=== PATIENT | female | born 1965 | race American Indian/Alaskan Native ===

== ENCOUNTER 2017-07-18 19:53 | Emergency (ER) | payer OTHER ==
[2017-07-18] MEDS ORDERED: MOTRIN PO ONE (20:29)
[2017-07-18 21:08] LABS: HCG Qualitative,Urine Negative (Negative)
[2017-07-18 21:13] LABS: Bacteria,Urine 1+ /HPF (Negative); Bilirubin,Urine NEG (Negative); Blood,Urine SM (Negative); Color,Urine Yellow (Yellow); Protein,Urine <15 mg/dL mg/dL (Negative); Urobilinogen,Urine < 2.0 mg/dL (<2.0)
--- NOTE | 2017-07-18 22:26 | XRay Report ---
FINAL REPORT EXAM: XR SPINE CERVICAL 2-3V HISTORY: pain TECHNIQUE: Cervical spine five views PRIORS: None. FINDINGS: Vertebral bodies demonstrate normal height and alignment. The disk spaces are within normal limits. The facet joints demonstrate normal alignment. The spinous processes are intact. Craniocervical junction is unremarkable. C1 and C2 are intact. IMPRESSION: Negative cervical spine series.
--- NOTE | 2017-07-18 22:42 | XRay Report ---
FINAL REPORT EXAM: XR KNEE 1-2V LT HISTORY: pain TECHNIQUE: Left knee three views PRIORS: None. FINDINGS: No fracture is identified. No dislocation seen. No evidence of joint effusion. Patella demonstrates normal positioning. No acute bony abnormality identified. IMPRESSION: Negative knee series
--- NOTE | 2017-07-18 22:45 | XRay Report ---
FINAL REPORT EXAM: XR SPINE LUMBOSACRAL 2-3V HISTORY: pain TECHNIQUE: Lumbar spine five views PRIORS: None. FINDINGS: Vertebral bodies demonstrate normal height and alignment. Few small marginal vertebral body osteophytes are noted. The disc spaces are within normal limits. There is no evidence of spondylolisthesis. Transverse and spinous processes are intact SI joints are unremarkable. IMPRESSION: Minimal spondylosis with some small marginal vertebral osteophytes noted otherwise negative study.
[2017-07-19 00:56] VITALS: BP 125/81
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
== END 2017-07-19 01:26 | disposition home or self-care (01) ==
LOC: ED 19:53
DX: S80.02XA Contusion of left knee, initial encounter (principal); M62.830 Muscle spasm of back; M54.2 Cervicalgia; M25.572 Pain in left ankle and joints of left foot; V89.2XXA Person injured in unspecified motor-vehicle accident, traffic, initial encounter; Y93.89 Activity, other specified; Y92.89 Other specified places as the place of occurrence of the external cause; Y99.8 Other external cause status
CPT/HCPCS: 72040; 72100; 81001; 81025

== ENCOUNTER 2019-02-06 09:09 | Emergency (ER) | payer BC, OTHER ==
[2019-02-06] MEDS ORDERED: oxyCODONE /ACETAMINOPHEN 5-325MG TAB PO STA (10:23)
[2019-02-06 11:10] LABS: Alanine Aminotransferase 12 units/L (7-56); Albumin 4.3 g/dL (3.9-5); BUN/Creatinine Ratio 16; Blood Urea Nitrogen 8 mg/dL (7-17); Calcium 8.7 mg/dL (8.4-10.2); Hemolysis Index 5
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
[2019-02-06 12:21] VITALS: BP 106/79
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
== END 2019-02-06 13:43 | disposition home or self-care (01) ==
LOC: ED 09:09
DX: S80.212A Abrasion, left knee, initial encounter (principal); S10.91XA Abrasion of unspecified part of neck, initial encounter; Z79.1 Long term (current) use of non-steroidal anti-inflammatories (NSAID); Z79.899 Other long term (current) drug therapy; V89.2XXA Person injured in unspecified motor-vehicle accident, traffic, initial encounter; Y93.89 Activity, other specified; Y92.488 Other paved roadways as the place of occurrence of the external cause; Y99.8 Other external cause status
CPT/HCPCS: 36415; 71260; 72125; 74177; 80053; 99284; Q9967

== ENCOUNTER 2019-07-23 20:05 | Emergency (ER) | payer BC | END 2019-07-23 20:30 | disposition left against medical advice (07) | LOC: ED 20:05 | DX: M54.2 Cervicalgia (principal); M54.9 Dorsalgia, unspecified; Z53.21 Procedure and treatment not carried out due to patient leaving prior to being seen by health care provider ==

== ENCOUNTER 2019-07-23 23:51 | Emergency (ER) | payer BC ==
[2019-07-24] MEDS ORDERED: dexAMETHasone 20 MG/5 ML VIAL IV ONE (02:07)
[2019-07-24] MEDS ORDERED: KETOROLAC 30 MG/1 ML INJ IV ONE (02:07)
[2019-07-24 02:34] LABS: Hematocrit 38.7 % (30.3-42.9); Hemoglobin 13.2 gm/dl (10.1-14.3); Mean Corpuscular HGB Conc 34 % (30-34); Mean Corpuscular Volume 87 fl (79-97); Platelet Count 191 K/mm3 (140-440); Red Blood Count 4.42 M/mm3 (3.65-5.03); Red Cell Distribution Width 13.6 % (13.2-15.2)
[2019-07-24 02:39] LABS: Bilirubin,Urine NEG (Negative); Color,Urine Yellow (Yellow)
[2019-07-24 02:40] LABS: Bacteria,Urine 1+ /HPF (Negative); Blood,Urine NEG (Negative); Mucus,Urine FEW /HPF; Protein,Urine <15 mg/dL mg/dL (Negative); Urobilinogen,Urine < 2.0 mg/dL (<2.0); WBC,Urine < 1.0 /HPF (0.0-6.0)
[2019-07-24 02:50] LABS: Alanine Aminotransferase 18 units/L (7-56); Albumin 4.7 g/dL (3.9-5); BUN/Creatinine Ratio 14; Blood Urea Nitrogen 10 mg/dL (7-17); Calcium 9.1 mg/dL (8.4-10.2); Hemolysis Index 6
[2019-07-24 03:34] LABS: Basophils % (Manual) 0 % (0.0-1.8); Total Cells Counted 100
[2019-07-24 03:35] LABS: Platelet Estimate Consistent w Auto; RBC Morphology Normal
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
--- NOTE | 2019-07-24 05:24 | Emergency Department Report ---
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 Patient denies dizziness, chest pain, shortness of breath, fever, chills, cough, numbness and tingling or weakness of upper and lower extremities bilaterally, change in vision, syncope, palpitations, fall, traumatic injury or heavy lifting. MD Complaint: Headache, right lateral neck pain and upper back pain -: Sudden, days(s) (3) Location: head, neck Radiation: non-radiation Severity scale (0 -10): 2 Quality: aching, sharp Consistency: constant Improves with: none Worsens with: none Associated Symptoms: denies other symptoms, headaches. denies: confusion, chest pain, cough, diaphoresis, fever/chills, loss of appetite, malaise, nausea/vomiting, rash, seizure, shortness of breath, syncope, weakness Treatments Prior to Arrival: none - Related Data Previous Rx's Medication Instructions Recorded Last Taken Type Baclofen [Lioresal] 10 mg PO TID #30 tab 07/19/17 Unknown Rx Ibuprofen 800 mg PO Q8H PRN #30 tablet 07/19/17 Unknown Rx HYDROcodone/APAP 7.5-325 [[place] 1 each PO Q8HR PRN #14 tablet 02/06/19 Unknown Rx 7.5/325] Meloxicam [Mobic] 15 mg PO DAILY #10 tablet 02/06/19 Unknown Rx Cyclobenzaprine [Flexeril] 10 mg PO Q8H PRN #21 tablet 07/24/19 Unknown Rx Ibuprofen [Motrin] 800 mg PO Q8HR PRN #30 tablet 07/24/19 Unknown Rx Allergies Allergy/AdvReac Type Severity Reaction Status Date / Time No Known Allergies Allergy Unverified 07/18/17 20:26 ED Review of Systems ROS: Stated complaint: NECK, BACK AND HAND PAIN Other details as noted in HPI Constitutional: denies: chills, fever Eyes: denies: eye pain, eye discharge, vision change ENT: denies: ear pain, throat pain Respiratory: denies: cough, shortness of breath, wheezing Cardiovascular: denies: chest pain, palpitations Endocrine: no symptoms reported Gastrointestinal: denies: abdominal pain, nausea, diarrhea Genitourinary: denies: urgency, dysuria, discharge Musculoskeletal: back pain (upper back), arthralgia (neck pain), myalgia. denies: joint swelling Skin: denies: rash, lesions Neurological: headache. denies: weakness, paresthesias Psychiatric: denies: anxiety, depression Hematological/Lymphatic: denies: easy bleeding, easy bruising ED Past Medical Hx - Past Medical History Previous Medical History?: Yes Hx Hypertension: Yes - Surgical History Past Surgical History?: No - Social History Smoking Status: Never Smoker Substance Use Type: None - Medications Home Medications: Home Medications Medication Instructions Recorded Confirmed Last Taken Type Baclofen [Lioresal] 10 mg PO TID #30 tab 07/19/17 Unknown Rx Ibuprofen 800 mg PO Q8H PRN #30 tablet 07/19/17 Unknown Rx HYDROcodone/APAP 7.5-325 [[place] 1 each PO Q8HR PRN #14 tablet 02/06/19 Unknown Rx 7.5/325] Meloxicam [Mobic] 15 mg PO DAILY #10 tablet 02/06/19 Unknown Rx Cyclobenzaprine [Flexeril] 10 mg PO Q8H PRN #21 tablet 07/24/19 Unknown Rx Ibuprofen [Motrin] 800 mg PO Q8HR PRN #30 tablet 07/24/19 Unknown Rx ED Physical Exam - General Limitations: No Limitations General appearance: alert, in no apparent distress - Head Head exam: Present: atraumatic, normocephalic, normal inspection - Eye Eye exam: Present: normal appearance, PERRL, EOMI Pupils: Present: normal accommodation - ENT ENT exam: Present: normal exam, normal orophraynx, mucous membranes moist, TM's normal bilaterally, normal external ear exam - Neck Neck exam: Present: normal inspection, tenderness (Palpable right lateral cervical paraspinal musculoskeletal tenderness; palpable right lateral delgado ocleidomastoid muscles tenderness), full ROM - Respiratory Respiratory exam: Present: normal lung sounds bilaterally. Absent: respiratory distress, wheezes, rhonchi, chest wall tenderness, accessory muscle use, decreased breath sounds, prolonged expiratory - Cardiovascular Cardiovascular Exam: Present: regular rate, normal rhythm, normal heart sounds. Absent: systolic murmur, diastolic murmur, rubs, gallop - GI/Abdominal GI/Abdominal exam: Present: soft, normal bowel sounds. Absent: tenderness, guarding, hyperactive bowel sounds, organomegaly - Extremities Exam Extremities exam: Present: normal inspection, full ROM, normal capillary refill - Back Exam Back exam: Present: normal inspection, full ROM. Absent: tenderness, CVA tenderness (R), CVA tenderness (L), muscle spasm, paraspinal tenderness - Neurological Exam Neurological exam: Present: alert, oriented X3, CN II-XII intact, normal gait, reflexes normal - Psychiatric Psychiatric exam: Present: normal affect, normal mood - Skin Skin exam: Present: warm, dry, intact, normal color. Absent: rash ED Course Vital Signs 07/24/19 07/24/19 00:01 02:34 Temperature 98.1 F Pulse Rate 58 L Respiratory 18 18 Rate Blood Pressure 132/83 O2 Sat by Pulse 100 Oximetry ED Medical Decision Making - Lab Data Result diagrams: 07/24/19 02:10 07/24/19 02:10 - EKG Data EKG shows normal: sinus rhythm Rate: normal - EKG Data Interpretation: normal EKG 07/24/19 05:24 EKG shows sinus bradycardia with ventricular rate of [address] or T wave abnormalities. 07/24/19 05:26 - Radiology Data Radiology results: report reviewed, image reviewed Chest x-ray shows no acute cardiopulmonary abnormality or pneumonitis. - Medical Decision Making This is a 53-year-old female with a history of hypertension who presented to the ED with acute onset persistent nontraumatic right lateral neck pain, headache and upper back pain for 3 days. In the ED, patient is alert and oriented x3 and is not in distress with normal vital signs. EKG shows sinus bradycardia with ventricular rate of [address] or T wave abnormalities. Lab test results were reviewed and are all nonactionable. Patient was treated for pain in the ED and a chest x-ray shows no acute cardiopulmonary abnormalities or pneumonitis. On reevaluation, patient's pain is well controlled medications. Patient's pain is likely due to cervical paraspinal musculoskeletal tenderness or muscle strain. Patient was discharged home on pain medications and muscle relaxants and advised follow-up with her primary care physician in 7 to 10 days for reevaluation. Patient was advised to return to the ED immediately if symptoms get worse. - Differential Diagnosis CAD; Cervical muscle strain; cervical spasm Critical care attestation.: If time is entered above; I have spent that time in minutes in the direct care of this critically ill patient, excluding procedure time. ED Disposition Clinical Impression: Cervical paraspinous muscle spasm Strain of sternocleidomastoid muscle Qualifiers: Encounter type: initial encounter Qualified Code(s): S16.1XXA - Strain of muscle, fascia and tendon at neck level, initial encounter Disposition: TO HOME OR SELFCARE Is pt being admited?: No Does the pt Need Aspirin: No Condition: Stable Instructions: Muscle Strain (ED), Cervical Sprain (ED) Additional Instructions: All lab test results are unremarkable including EKG and chest x-ray. Therefore take medications as needed for pain and muscle relaxants. Follow-up with your primary care physician in 7 to 10 days for reevaluation or return to the ED immediately if symptoms get worse. Prescriptions: Cyclobenzaprine [Flexeril] 10 mg PO Q8H PRN #21 tablet PRN Reason: Muscle Spasm Ibuprofen [Motrin] 800 mg PO Q8HR PRN #30 tablet PRN Reason: Pain , Severe (7-10) Referrals: [facility] [Outside] - 3-5 Days Forms: Work/School Release Form(ED) Time of Disposition: 05:28 Print Language: [id number]
[2019-07-24 05:58] VITALS: BP 155/100
== END 2019-07-24 05:40 | disposition home or self-care (01) ==
LOC: ED 23:51
DX: S16.1XXA Strain of muscle, fascia and tendon at neck level, initial encounter (principal); M62.838 Other muscle spasm; I10 Essential (primary) hypertension; Z79.1 Long term (current) use of non-steroidal anti-inflammatories (NSAID); Z79.899 Other long term (current) drug therapy; X58.XXXA Exposure to other specified factors, initial encounter; Y93.89 Activity, other specified; Y92.89 Other specified places as the place of occurrence of the external cause; Y99.8 Other external cause status
CPT/HCPCS: 36415; 71046; 80053; 81001; 84484; 85007; 85025; 93005; 93010; 96374; 96375; 99284; J1100; J1885